=== PATIENT | female | born 1990 | race Hispanic/Latino ===

== ENCOUNTER 2017-04-10 12:59 | Emergency (ER) | payer SELFPAY ==
[2017-04-10 13:12] VITALS: BP 130/84
== END 2017-04-10 16:46 | disposition left against medical advice (07) ==
LOC: ED 12:59
DX: L02.31 Cutaneous abscess of buttock (principal); Z53.21 Procedure and treatment not carried out due to patient leaving prior to being seen by health care provider

== ENCOUNTER 2018-11-24 13:29 | Emergency (ER) | payer OTHER ==
[2018-11-24 13:50] VITALS: BP 121/76
--- NOTE | 2018-11-24 13:50 | Event Note ---
ED Screening Note Date of service: 11/24/18 Time: 13:47 ED Screening Note: 28 y o female presents with left heel pain worsened with applied pressure yesterday states when applied pressure to left heel her left side numbess to leg and arms no fall.injuries pmh: lumbar surgery x 2 years This initial assessment/diagnostic orders/clinical plan/treatment(s) is/are subject to change based on patients health status, clinical progression and re- assessment by fellow clinical providers in the ED. Further treatment and workup at subsequent clinical providers discretion. Patient/guardian urged not to elope from the ED as their condition may be serious if not clinically assessed and managed. Initial orders include:
[2018-11-24] MEDS ORDERED: IBUPROFEN 800 MG TAB PO ONE (15:09)
--- NOTE | 2018-11-24 15:44 | Emergency Department Report ---
ED Extremity Problem HPI - General Chief complaint: Extremity Injury, Lower Stated complaint: FOOT PAIN Time Seen by Provider: 11/24/18 13:47 Source: patient Mode of arrival: Ambulatory Limitations: No Limitations - History of Present Illness Initial comments: Patient is a 28-year-old female who is complaining of pain in the left foot. Patient has a history of sciatica oftentimes has pain in the left lower extremity but now she has pain in the bottom of the left foot. She feels a nodule there. Patient states when she bears weight on the left side she has a pain shooting up through the calf into her back. Patient states she also has occasional have some left arm pain when she is bearing weight. Patient denies any trauma fevers chills nausea vomiting at this time. Pain is 8 out of 10 in severity. Severity scale (0 -10): 8 - Related Data Previous Rx's Medication Instructions Recorded Last Taken Type FLUoxetine [PROzac] 10 mg PO QDAY #14 tablet 01/31/14 Unknown Rx ALBUTEROL NEB's [Proventil 0.083% 2.5 mg IH Q4H PRN #25 neb 07/03/14 Unknown Rx NEBS] Acetaminophen with Codeine 1 each PO Q6H PRN #16 tablet 07/03/14 Unknown Rx [Acetaminophen-Codeine #4 TAB] Albuterol Sulfate [Ventolin HFA] 2 puff IH Q4H PRN #1 hfa.aer.ad 07/03/14 Unknow n Rx Azithromycin [Zithromax Z-RAS] 250 mg PO DAILY #6 tablet 07/03/14 Unknown Rx predniSONE [Deltasone] 20 mg PO TID #15 tab 07/03/14 Unknown Rx Ibuprofen [Motrin 600 MG tab] 600 mg PO Q8H PRN #20 tablet 11/24/18 Unknown Rx Allergies Allergy/AdvReac Type Severity Reaction Status Date / Time acetaminophen [From [place]] AdvReac Itching Verified 07/03/14 05:40 amoxicillin trihydrate AdvReac Nausea Verified 07/03/14 05:40 [From Augmentin] hydrocodone bitartrate AdvReac Itching Verified 07/03/14 05:40 [From [place]] potassium clavulanate AdvReac Nausea Verified 07/03/14 05:40 [From Augmentin] ED Review of Systems ROS: Stated complaint: FOOT PAIN Other details as noted in HPI Comment: All other systems reviewed and negative ED Past Medical Hx - Past Medical History Hx Psychiatric Treatment: Yes (depression & ADHD) Hx Asthma: Yes Additional medical history: TB as a child - Surgical History Hx Cholecystectomy: Yes Hx Appendectomy: Yes Additional Surgical History: LUMBAR SURGERY-2017 - Social History Smoking Status: Current Every Day Smoker Substance Use Type: None - Medications Home Medications: Home Medications Medication Instructions Recorded Confirmed Last Taken Type FLUoxetine [PROzac] 10 mg PO QDAY #14 tablet 01/31/14 Unknown Rx ALBUTEROL NEB's [Proventil 0.083% 2.5 mg IH Q4H PRN #25 neb 07/03/14 Unknown Rx NEBS] Acetaminophen with Codeine 1 each PO Q6H PRN #16 tablet 07/03/14 Unknown Rx [Acetaminophen-Codeine #4 TAB] Albuterol Sulfate [Ventolin HFA] 2 puff IH Q4H PRN #1 hfa.aer.ad 07/03/14 Unknown Rx Azithromycin [Zithromax Z-RAS] 250 mg PO DAILY #6 tablet 07/03/14 Unknown Rx predniSONE [Deltasone] 20 mg PO TID #15 tab 07/03/14 Unknown Rx Ibuprofen [Motrin 600 MG tab] 600 mg PO Q8H PRN #20 tablet 11/24/18 Unknown Rx ED Physical Exam - General Limitations: No Limitations General appearance: alert, in no apparent distress - Head Head exam: Present: atraumatic, normocephalic - Eye Eye exam: Present: normal appearance - ENT ENT exam: Present: mucous membranes moist - Neck Neck exam: Present: normal inspection - Respiratory Respiratory exam: Present: normal lung sounds bilaterally. Absent: respiratory distress, wheezes, rales, rhonchi - Cardiovascular Cardiovascular Exam: Present: regular rate, normal rhythm, normal heart sounds. Absent: systolic murmur, diastolic murmur, rubs, gallop - GI/Abdominal GI/Abdominal exam: Present: soft, normal bowel sounds. Absent: distended, tenderness, guarding - Extremities Exam Extremities exam: Present: normal inspection, other (patient's left foot appears normal. There is a palpable nodule at the plantar surface between the heel and arch. This area is tender but not erythematous. There is no fluctuance present.) - Back Exam Back exam: Present: normal inspection - Neurological Exam Neurological exam: Present: alert, oriented X3 - Psychiatric Psychiatric exam: Present: normal affect, normal mood - Skin Skin exam: Present: warm, dry, intact, normal color. Absent: rash ED Course Vital Signs 11/24/18 13:48 Temperature 98.2 F Pulse Rate 102 H Respiratory 18 Rate Blood Pressure 121/76 O2 Sat by Pulse 99 Oximetry ED Medical Decision Making - Radiology Data Tray was interpreted by me as negative for foreign body. - Medical Decision Making has a nodularity of the left foot. X-ray was done to rule out foreign body which was negative for radiopaque foreign body. Patient likely has some nodule secondary to advanced plantar fasciitis. In speaking more in depth with the patient patient does occasionally have some minor flareups of pain in the bilateral feet but never to this extent. Patient will be referred to podiatry and given meds for symptomatic relief. Critical care attestation.: If time is entered above; I have spent that time in minutes in the direct care of this critically ill patient, excluding procedure time. ED Disposition Clinical Impression: Plantar fascial fibromatosis of left foot Disposition: DC-01 TO HOME OR SELFCARE Is pt being admited?: No Does the pt Need Aspirin: No Condition: Stable Instructions: Plantar Fasciitis (ED) Additional Instructions: Insoles bought [id number] for plantar fasciitis may be helpful Referrals: ROSE COMER DPM [Staff Physician] - 3-5 Days Time of Disposition: 15:44
--- NOTE | 2018-11-24 16:12 | XRay Report ---
LEFT FOOT, 3 VIEWS INDICATION: pain in heel of foot. COMPARISON: None. IMPRESSION: No acute osseous or soft tissue abnormality. No significant DJD. No plantar spur is a ppreciated. Signer Name: Arslan Mosher Jr, MD Signed: 11/24/2018 4:07 PM Workstation Name: [id number]
== END 2018-11-24 17:27 | disposition home or self-care (01) ==
LOC: ED 13:29
DX: M72.2 Plantar fascial fibromatosis (principal); F90.9 Attention-deficit hyperactivity disorder, unspecified type; F17.200 Nicotine dependence, unspecified, uncomplicated; Z90.89 Acquired absence of other organs; Z90.49 Acquired absence of other specified parts of digestive tract; Z88.6 Allergy status to analgesic agent; Z88.1 Allergy status to other antibiotic agents; Z88.5 Allergy status to narcotic agent; Z88.8 Allergy status to other drugs, medicaments and biological substances